=== PATIENT | female | born 1955 | race Caucasian/White ===

== ENCOUNTER 2022-11-08 09:43 | Emergency (ER) | payer OTHER, SELFPAY ==
--- NOTE | ~2022-11-08 | XR_ITS ---
EXAMINATION: XR KNEE, RIGHT CLINICAL INFORMATION: Pain status post fall COMPARISON: None TECHNIQUE: Two views of the right knee. FINDINGS: Small effusion. Advanced degenerative arthritis medial compartment. Generalized spurring. No focal bony lesion or deformity. Tibial plateaus intact. No radiopaque loose body. Monckeberg calcification suggesting diabetes. XR/XR knee RT 2V IMPRESSION: No fracture. Advanced degenerative arthritis medial compartment. Small effusion.
[2022-11-08 09:52] VITALS: BP 146/71; PULSE 73; RESP 18; TEMP 36; O2SAT 96; BMI 33.3
--- NOTE | 2022-11-08 11:08 | ED.LOWEXIN ---
HPI - Extremity Injury (Lower) General Chief Complaint: Extremity Injury, Lower Stated Complaint: R knee pain work inj Time Seen by Provider: 11/08/22 10:10 History of Present Illness HPI Narrative: patient complains of right knee pain after fall at work yesterday, she slipped on a patch of wet water and fell down and twisted her rightknee, denies any other pain or injury at this time Related Data Allergies Allergy/AdvReac Type Severity Reaction Status Date / Time acetaminophen [From Percocet] Allergy Intermediate Unknown Verified 11/08/22 09:52 oxycodone [From Percocet] Allergy Intermediate Unknown Verified 11/08/22 09:52 Review of Systems Review of Systems: positive for right knee pain after fall Negatives are no head injury no headache no loss of consciousness no neck pain no numbness weakness or tingling no chest pain no rib pain no abdominal pain no other extremity injuries or pain no lacerations Yes all other systems are reviewed and are negative PMFSH Past Medical History Source: nursing notes reviewed Social History Social History Advance Directives: No Advance Directives Information Provided: No Physical Exam Vital Signs: Vital Signs: Last Vital Signs Temp 96.8 F 11/08/22 09:52 Pulse 73 11/08/22 09:52 Resp 18 11/08/22 09:52 BP 146/71 H 11/08/22 09:52 Pulse Ox 96 11/08/22 09:52 O2 Del Method 11/08/22 09:52 BMI result Body Mass Index 33.3 general appearance is no acute distress Head is normocephalic atraumatic Neck is supple The back full range of motion Respiratory no distress The right knee exam there is tender on the medial and anterior aspects of the knee there may be some mild swelling there is no redness no warmth that extends to 180 patient can do a straight leg lift, there is no ligamentous laxity no redness no warmth no rash, skin is intact Other extremities normal Skin no rashes Neuro no motor sensory deficit Course Course Course Narrative: x-ray right kneeshowed arthritic changes, small effusion, no acute bony injury Patient will follow with [facility] and is given an Jb bandage, she could ambulate with a limp and has her cane and was discharged Discharge Plan Discharge Clinical Impression: Right knee sprain, Fall Patient Disposition: Home, Self-Care Additional Instructions: x-ray did show arthritis in the knee but no broken bones you may have sprained your knee in the fall, and because of the underlying arthritis it will be painful Apply ice, elevate knee, Tylenol if needed Follow with [facility] on Thursday if not better Referrals: [facility] [Provider Group] ( knee sprain at work after a fall) Alek Harden MD [Physician] - ( work related knee sprain after a fall with underlying osteoarthritis) Stand Alone Forms: Work/School Release Interventions: ED Discharge Assessment Last Done: 11/08/22 11:20 Discharge Date/Time: 11/08/22 11:23
--- NOTE | 2022-11-08 11:21 | PC.NURSE ---
tech put an ac bandage on pt's knee and gave discharge instructions
== END 2022-11-08 11:23 | disposition home or self-care (01) ==
PROVIDERS: Emergency Provider Emergency Medicine; PCP Internal Medicine
DX: S83.91XA Sprain of unspecified site of right knee, initial encounter (principal); W01.0XXA Fall on same level from slipping, tripping and stumbling without subsequent striking against object, initial encounter; Y93.89 Activity, other specified; Y92.512 Supermarket, store or market as the place of occurrence of the external cause; Y99.0 Civilian activity done for income or pay
CPT/HCPCS: 73560; 99283

== ENCOUNTER → 2022-11-14 08:37 | Outpatient (BNVA) | payer OTHER, SELFPAY | PROVIDERS: PCP Internal Medicine; Visit Provider Physician Assistant | DX: M25.561 Pain in right knee (principal); M25.461 Effusion, right knee | CPT/HCPCS: 99204 ==

== ENCOUNTER → 2022-11-28 09:00 | Outpatient (BNVA) | payer OTHER, SELFPAY | PROVIDERS: PCP Internal Medicine; Visit Provider Physician Assistant | DX: M25.561 Pain in right knee (principal) | CPT/HCPCS: 99213 ==

== ENCOUNTER 2023-01-01 11:51 | Emergency (ER) | payer OTHER, SELFPAY ==
[2023-01-01] VITALS (7 sets, daily range): BP systolic 184–220; BP diastolic 73–93; PULSE 64–88; RESP 16–19; TEMP 35.7–37.2; O2SAT 95–100; BMI 33.3
--- NOTE | ~2023-01-01 | CT_ITS ---
EXAMINATION: CT HEAD WITHOUT CONTRAST CLINICAL INFORMATION: 2 weeks feeling off balance COMPARISON: None TECHNIQUE: Contiguous axial imaging was performed from the skull base to vertex without intravenous administration of contrast. This CT examination was performed using dose optimization techniques as appropriate, variously including the following: *Automated exposure control *Adjustment of mA and/or kV according to patient size (this includes techniques or standardized protocols for targeted exams where dose is matched to indication/reason for exam; i.e. extremities or head) *Use of iterative reconstruction technique DLP: 615 mGy-cm FINDINGS: There is no evidence of acute intracranial hemorrhage or territorial infarction. No abnormal mass effect or midline shift is seen. Jung to white matter differentiation is well preserved. No extra-axial fluid collections are identified. No hydrocephalus. No significant volume loss. Patchy periventricular and deep white matter hypoattenuation is consistent with mild small vessel ischemic changes. No acute osseous or soft tissue abnormality. The mastoid air cells and visualized portions of the paranasal sinuses are well aerated. CT/CT head/brain wo IV con IMPRESSION: No acute intracranial pathology.
--- NOTE | 2023-01-01 12:17 | ED.GENADULT ---
HPI - General Adult General Chief complaint: Dizziness <ALBER Carrillo - Last Filed: 01/01/23 12:20> Stated complaint: vertigo <ALBER Carrillo - Last Filed: 01/01/23 12:20> Time Seen by Provider: 01/01/23 22:44 <ALBER Carrillo - Last Filed: 01/01/23 12:20> Source: patient <Pallavi Collins MD - Last Filed: 01/02/23 01:20> Mode of arrival: ambulatory <Pallavi Collins MD - Last Filed: 01/02/23 01:20> Limitations: no limitations <Pallavi Collins MD - Last Filed: 01/02/23 01:20> History of Present Illness HPI narrative: Patient comes to the emergency room complaining of intermittent dizziness for 2 weeks. Patient states that whenever she moves her head a certain way, she has dizziness. Patient describes dizziness as feeling that she is on a ship. Patient denies room spinning, also complaining of wobbly gait intermittently. Patient also complaining of left ear fullness, no ear pain, no fever chills. Patient states that she was prescribed meclizine by her PCP, patient states that the meclizine made her more dizzy and stop taking it. <Pallavi Collins MD - Last Filed: 01/02/23 01:20> Related Data Home medications: Previous Rx's Medication Instructions Recorded diazepam 2 mg tablet 2 mg PO BEDTIME PRN vertigo #7 tabs 01/02/23 diphenhydramine HCl 25 mg capsule 25 mg PO BEDTIME PRN motion 01/02/23 (Benadryl) sickness #10 caps <ALBER Carrillo - Last Filed: 01/01/23 12:20> Allergies/adverse reactions: Allergies Allergy/AdvReac Type Severity Reaction Status Date / Time acetaminophen [From Percocet] Allergy Intermediate Unknown Verified 11/08/22 09:52 oxycodone [From Percocet] Allergy Intermediate Unknown Verified 11/08/22 09:52 <ALBER Carrillo - Last Filed: 01/01/23 12:20> Review of Systems Review of Systems: Constitutional : No Weight loss, No Fever, No Chills, No Night Sweats, No Fatigue, No Malaise ENT/Mouth : No Hearing loss, No Ear Pain, No Nasal Congestion, No Sinus Pain, No Hoarseness, No sore throat, No Rhinorrhea, No Swallowing Difficulty Eyes: No Eye Pain, No Swelling, No Redness, No Foreign Body, No Discharge, No Vision Changes Cardiovascular : No Chest Pain, No SOB, No Dyspnea on Exertion, No Orthopnea, No Edema, No Palpitations Respiratory : No Cough, No Sputum, No Wheezing, No Smoke Exposure, No Dyspnea Gastrointestinal : No Nausea, No Vomiting, No Diarrhea, No Constipation, No abdominal Pain, No Hematochezia, No Melena Genitourinary : no irregular bleeding, No Dysuria, No Urinary Frequency, No Hematuria, No Urinary Incontinence, No Urgency, No Flank Pain, No Urinary Flow Changes, No Hesitancy Musculoskeletal : No joint pain, No Myalgias, No Joint Swelling Skin : No Skin Lesions, No rash Neuro : No Weakness, No Numbness, No Paresthesias, No Loss of Consciousness, patient complaining of feeling off balance and wobbly gait with certain head movements Psych : No Anxiety/Panic, No Depression, No SI/HI/AH/VH, No Social Issues, Heme/Lymph: No Bruising, No Bleeding,No Lymphadenopathy Endocrine : No Polyuria, No Polydipsia, No Temperature Intolerance <Pallavi Collins MD - Last Filed: 01/02/23 01:20> [facility] Past Medical History Medical History: Medical History (Updated 01/02/23 @ 01:17 by Pallavi Collins MD) Anxiety <ALBER Carrillo - Last Filed: 01/01/23 12:20> Social History Social History: Social History Advance Directives: No <ALBER Carrillo - Last Filed: 01/01/23 12:20> Physical Exam ED Vital Signs: Vital Signs - 24 hr 01/01/23 12:18 01/01/23 16:50 01/01/23 19:00 Temperature 96.3 F L 98.9 F Pulse Rate 64 88 83 Respiratory Rate 18 18 Blood Pressure 184/77 H 186/73 H 192/75 H Pulse Oximetry 97 95 Oxygen Delivery Method Room Air Room Air 01/01/23 19:05 01/01/23 19:10 01/01/23 19:15 Temperature Pulse Rate 70 78 78 Respiratory Rate 16 Blood Pressure 198/91 H 190/93 H 190/93 H Pulse Oximetry 100 Oxygen Delivery Method Room Air 01/01/23 22:40 01/02/23 00:21 Temperature 98 F 97.0 F Pulse Rate 72 86 Respiratory Rate 19 20 Blood Pressure 220/78 H 177/91 H Pulse Oximetry 97 96 Oxygen Delivery Method Room Air Room Air BMI result Body Mass Index 33.3 <ALBER Carrillo - Last Filed: 01/01/23 12:20> Vital Signs - 24 hr 01/01/23 12:18 01/01/23 16:50 01/01/23 19:00 Temperature 96.3 F L 98.9 F Pulse Rate 64 88 83 Respiratory Rate 18 18 Blood Pressure 184/77 H 186/73 H 192/75 H Pulse Oximetry 97 95 Oxygen Delivery Method Room Air Room Air 01/01/23 19:05 01/01/23 19:10 01/01/23 19:15 Temperature Pulse Rate 70 78 78 Respiratory Rate 16 Blood Pressure 198/91 H 190/93 H 190/93 H Pulse Oximetry 100 Oxygen Delivery Method Room Air 01/01/23 22:40 01/02/23 00:21 Temperature 98 F 97.0 F Pulse Rate 72 86 Respiratory Rate 19 20 Blood Pressure 220/78 H 177/91 H Pulse Oximetry 97 96 Oxygen Delivery Method Room Air Room Air BMI result Body Mass Index 33.3 <Pallavi Collins MD - Last Filed: 01/02/23 01:20> Const Other: Appearance: Alert. Oriented X3. No acute distress. Eyes: Pupils equal, round and reactive to light. ENT: Pharynx normal. Neck: Normal inspection. Neck supple. No lymph nodes noted. No crepitus CVS: Normal heart rate and rhythm. Pulses normal. Normal S1 and S2 Respiratory: No respiratory distress. Breath sounds normal. No Wheezing. No rales Abdomen: Soft and nontender. No rigidity. No distention. Skin: Skin warm and dry. Normal skin color. Normal skin turgor. Extremities: No lower extremity edema. No Lacerations. No Rash Neuro: Oriented X 3. No motor deficit. No sensory deficit. Moving all extremities. No slurred speech. CN 2 through 12 grossly intact Psych: calm, cooperative, normal affect <Pallavi Collins MD - Last Filed: 01/02/23 01:20> Course Course Course Narrative: This is an RME: Additional HPI, ROS, PE not included below will be deferred to primary provider. This is a 67 year old female presenting w/ L ear discomfort X few weeks worsening over the past two days. Feels off balance. Was told to come in for eval by her PCP. Denies fevers, chills, neck pain, cp, sob, nausea, vomiting. Hx of vertigo. Plan- labs, ua, orthostatic vitals. Patient tells me she cant take meclizine <ALBER Carrillo - Last Filed: 01/01/23 12:20> This is an RME: Additional HPI, ROS, PE not included below will be deferred to primary provider. This is a 67 year old female presenting w/ L ear discomfort X few weeks worsening over the past two days. Feels off balance. Was told to come in for eval by her PCP. Denies fevers, chills, neck pain, cp, sob, nausea, vomiting. Hx of vertigo. Plan- labs, ua, orthostatic vitals. Patient tells me she cant take meclizine -patient reports wobbly gait, we will also obtain a head CT <Pallavi Collins MD - Last Filed: 01/02/23 01:20> Medications Administered Discontinued Medications Generic Name Dose Route Start Last Admin Trade Name Freq PRN Reason Stop Dose Admin Diazepam 2 mg 01/01/23 12:18 01/01/23 20:54 Diazepam 2 Mg Tablet PO 01/01/23 12:19 2 mg ONCE ONE Administration Sodium Chloride 1,000 mls @ 999 mls/hr 01/01/23 12:30 01/01/23 22:40 Ns IV 01/01/23 13:30 Not Given .Q1H1M ABRIL <ALBER Carrillo - Last Filed: 01/01/23 12:20> Medications Administered Discontinued Medications Generic Name Dose Route Start Last Admin Trade Name Freq PRN Reason Stop Dose Admin Diazepam 2 mg 01/01/23 12:18 01/01/23 20:54 Diazepam 2 Mg Tablet PO 01/01/23 12:19 2 mg ONCE ONE Administration Sodium Chloride 1,000 mls @ 999 mls/hr 01/01/23 12:30 01/01/23 22:40 Ns IV 01/01/23 13:30 Not Given .Q1H1M ABRIL <Pallavi Collins MD - Last Filed: 01/02/23 01:20> Medical Decision Making Medical Decision Making [facility] Narrative: -CT scan of the head does not show any acute abnormalities, ventricles normal -patient has been walking in the ED with steady gait, using her cane as she usually does -patient cannot take meclizine which makes her dizzy. I discussed with the patient that p.r.n. dizziness/vertigo she can take diazepam and Benadryl once she is in bed to avoid falling -discussed with the patient that the actual treatment can be done through physical therapy, likely to need Rossy maneuver -patient was given Benadryl and diazepam in the ED. Patient has a friend who will be driving. <Pallavi Collins MD - Last Filed: 01/02/23 01:20> Differential Diagnosis Differential Diagnoses: The differential diagnosis associated with the presentation includes (Normal pressure hydrocephalus, vertigo) <Pallavi Collins MD - Last Filed: 01/02/23 01:20> Lab Data [facility] Lab Attestation statement: I reviewed the patient's lab results. <Pallavi Collins MD - Last Filed: 01/02/23 01:20> Result Diagrams: 01/01/23 13:34 01/01/23 13:34 <ALBER Carrillo - Last Filed: 01/01/23 12:20> Labs: Lab Results 01/01/23 01/01/23 01/01/23 Range/Units 13:34 13:34 20:56 WBC 8.0 (4.8-10.8) X10*3/uL RBC 4.47 (4.20-5.50) X10*6/uL Hgb 14.3 (12.0-16.0) g/dl Hct 41.8 (37.0-47.0) % MCV 93.5 (80.0-98.0) fL MCH 32.0 (27.0-33.0) pg MCHC 34.2 (31.0-35.0) g/dl RDW 12.9 (11.0-16.0) % Plt Count 254 (160-400) X10*3/uL MPV 10.3 (9.4-12.3) fL Immature Gran % (Auto) 0.2 (0.0-0.4) % Neut % (Auto) 71.3 (45-73) % Lymph % (Auto) 20.8 (20-40) % [place] % (Auto) 6.8 (2-11) % Eos % (Auto) 0.5 (0-4) % Baso % (Auto) 0.4 (0-2) % Lymph # (Auto) 1.7 (1.2-4.9) X10*3/uL [place] # (Auto) 0.6 (0.1-1.2) X10*3/uL Eos # (Auto) 0.0 (0.0-0.4) X10*3/uL Baso # (Auto) 0.0 (0.0-0.2) X10*3/uL Abs Immat Gran (auto) 0.02 (0.00-0.03) X10*3/uL Absolute Neuts (auto) 5.7 (2.0-8.3) x10*3/uL Absolute Nucleated RBC 0.000 (0.0-0.012) X10*3/uL Nucleated RBC % (auto) 0.0 (0.0-0.2) /100WBC Sodium 143 (135-145) mmol/L Potassium 4.0 (3.3-5.1) mmol/L Chloride 107 (96-108) mmol/L Carbon Dioxide 25 (22-29) mmol/L Anion Gap 15 (12-20) BUN 8 L (9-16) mg/dL Creatinine 0.74 (0.5-1.4) mg/dL Estim Creat Clear Calc 79.8 Estimated GFR > 60 Random Glucose 133 H (60-115) mg/dL Calcium 9.7 (8.4-10.2) mg/dL Total Bilirubin 1.0 (0.0-1.0) mg/dL AST 17 (5-31) U/L ALT 24 (0-31) U/L Alkaline Phosphatase 97 (39-117) U/L Total Protein 6.9 (6.5-8.0) g/dL Albumin 4.5 (3.5-5.0) g/dL Urine Color Yellow Urine Appearance Clear Urine pH 6.5 (5.0-9.0) Ur Specific [place] 1.010 (1.005-1.025) Urine Protein Negative (Neg-Trace) mg/dL Urine Glucose (UA) Negative (Negative) mg/dL Urine Ketones Negative (Negative) mg/dL Urine Blood Negative (Negative) Urine Nitrite Negative (Negative) Ur Leukocyte Esterase Small (1+) H (Negative) Urine RBC 0-2 (0-2) /HPF Urine WBC 0-5 (0-5) /HPF Ur Squamous Epith Cells 0-2 (0-2) /HPF Urine Bacteria 1+ (None Seen) Hyaline Casts 0-2 (0-2) /LPF <ALBER Carrillo - Last Filed: 01/01/23 12:20> Lab Results 01/01/23 01/01/23 01/01/23 Range/Units 13:34 13:34 20:56 WBC 8.0 (4.8-10.8) X10*3/uL RBC 4.47 (4.20-5.50) X10*6/uL Hgb 14.3 (12.0-16.0) g/dl Hct 41.8 (37.0-47.0) % MCV 93.5 (80.0-98.0) fL MCH 32.0 (27.0-33.0) pg MCHC 34.2 (31.0-35.0) g/dl RDW 12.9 (11.0-16.0) % Plt Count 254 (160-400) X10*3/uL MPV 10.3 (9.4-12.3) fL Immature Gran % (Auto) 0.2 (0.0-0.4) % Neut % (Auto) 71.3 (45-73) % Lymph % (Auto) 20.8 (20-40) % [place] % (Auto) 6.8 (2-11) % Eos % (Auto) 0.5 (0-4) % Baso % (Auto) 0.4 (0-2) % Lymph # (Auto) 1.7 (1.2-4.9) X10*3/uL [place] # (Auto) 0.6 (0.1-1.2) X10*3/uL Eos # (Auto) 0.0 (0.0-0.4) X10*3/uL Baso # (Auto) 0.0 (0.0-0.2) X10*3/uL Abs Immat Gran (auto) 0.02 (0.00-0.03) X10*3/uL Absolute Neuts (auto) 5.7 (2.0-8.3) x10*3/uL Absolute Nucleated RBC 0.000 (0.0-0.012) X10*3/uL Nucleated RBC % (auto) 0.0 (0.0-0.2) /100WBC Sodium 143 (135-145) mmol/L Potassium 4.0 (3.3-5.1) mmol/L Chloride 107 (96-108) mmol/L Carbon Dioxide 25 (22-29) mmol/L Anion Gap 15 (12-20) BUN 8 L (9-16) mg/dL Creatinine 0.74 (0.5-1.4) mg/dL Estim Creat Clear Calc 79.8 Estimated GFR > 60 Random Glucose 133 H (60-115) mg/dL Calcium 9.7 (8.4-10.2) mg/dL Total Bilirubin 1.0 (0.0-1.0) mg/dL AST 17 (5-31) U/L ALT 24 (0-31) U/L Alkaline Phosphatase 97 (39-117) U/L Total Protein 6.9 (6.5-8.0) g/dL Albumin 4.5 (3.5-5.0) g/dL Urine Color Yellow Urine Appearance Clear Urine pH 6.5 (5.0-9.0) Ur Specific [place] 1.010 (1.005-1.025) Urine Protein Negative (Neg-Trace) mg/dL Urine Glucose (UA) Negative (Negative) mg/dL Urine Ketones Negative (Negative) mg/dL Urine Blood Negative (Negative) Urine Nitrite Negative (Negative) Ur Leukocyte Esterase Small (1+) H (Negative) Urine RBC 0-2 (0-2) /HPF Urine WBC 0-5 (0-5) /HPF Ur Squamous Epith Cells 0-2 (0-2) /HPF Urine Bacteria 1+ (None Seen) Hyaline Casts 0-2 (0-2) /LPF <Pallavi Collins MD - Last Filed: 01/02/23 01:20> Independent Interpretation I performed an independent interpretation of an: CT Scan (My interpretation of head CT: No hydrocephalus) <Pallavi Collins MD - Last Filed: 01/02/23 01:20> Radiology Impression Discussion of test interpretation with radiology: I have reviewed the radiologist's reading. <Pallavi Collins MD - Last Filed: 01/02/23 01:20> Radiologist Impression: FINDINGS: There is no evidence of acute intracranial hemorrhage or territorial infarction. No abnormal mass effect or midline shift is seen. Jung to white matter differentiation is well preserved. No extra-axial fluid collections are identified. No hydrocephalus. No significant volume loss. Patchy periventricular and deep white matter hypoattenuation is consistent with mild small vessel ischemic changes. No acute osseous or soft tissue abnormality. The mastoid air cells and visualized portions of the paranasal sinuses are well aerated. ? CT/CT head/brain wo IV con IMPRESSION: No acute intracranial pathology. <Pallavi Collins MD - Last Filed: 01/02/23 01:20> Discharge Plan Discharge Clinical Impression: Benign paroxysmal positional vertigo <ALBER Carrillo - Last Filed: 01/01/23 12:20> Patient Disposition: Home, Self-Care <ALBER Carrillo - Last Filed: 01/01/23 12:20> Instructions: Benign Paroxysmal Positional Vertigo (ED) <ALBER Carrillo - Last Filed: 01/01/23 12:20> Additional Instructions: Please follow-up with your primary care physician tomorrow. If you have any worsening or new symptoms, please return to the emergency room or call 911 <ALBER Carrillo - Last Filed: 01/01/23 12:20> Prescriptions: New diphenhydramine HCl [Benadryl] 25 mg capsule 25 mg PO BEDTIME PRN (Reason: motion sickness) Qty: 10 0RF diazepam 2 mg tablet 2 mg PO BEDTIME PRN (Reason: vertigo) Qty: 7 0RF <ALBER Carrillo - Last Filed: 01/01/23 12:20>
[2023-01-01 13:38] LABS: MANUAL DIFF FLAG NO
[2023-01-01 13:39] LABS: Basophils Percent Auto 0.4 % (0-2); Eosinophils Percent Auto 0.5 % (0-4); Hematocrit 41.8 % (37.0-47.0); Hemoglobin 14.3 g/dl (12.0-16.0); Imm Gran Abs Auto 0.02 X10*3/uL (0.00-0.03); Imm Gran Pct Auto 0.2 % (0.0-0.4); Lymphocytes Absolute Auto 1.7 X10*3/uL (1.2-4.9); Lymphocytes Percent Auto 20.8 % (20-40); Mean Corpuscular HGB Conc 34.2 g/dl (31.0-35.0); Mean Corpuscular Volume 93.5 fL (80.0-98.0); Mean Platelet Volume 10.3 fL (9.4-12.3); Monocytes Absolute Auto 0.6 X10*3/uL (0.1-1.2); Monocytes Percent Auto 6.8 % (2-11); Neutrophils Absolute Auto 5.7 x10*3/uL (2.0-8.3); Neutrophils Percent Auto 71.3 % (45-73); Platelet Count 254 X10*3/uL (160-400); Red Blood Count 4.47 X10*6/uL (4.20-5.50); Red Cell Distribution Width 12.9 % (11.0-16.0)
[2023-01-01 13:56] LABS: Alanine Aminotransferase 24 U/L (0-31); Albumin Level 4.5 g/dL (3.5-5.0); Alkaline Phosphatase 97 U/L (39-117); Anion Gap 15 (12-20); Aspartate Amino Transferase 17 U/L (5-31); Blood Urea Nitrogen 8 mg/dL (9-16); Calcium 9.7 mg/dL (8.4-10.2); Carbon Dioxide 25 mmol/L (22-29); Chloride 107 mmol/L (96-108); Creatinine Clr Calc Pharmacy 79.8; Estimated Glomerular Filt Rate > 60; Glucose Random 133 mg/dL (60-115); Sodium 143 mmol/L (135-145); Total Protein 6.9 g/dL (6.5-8.0)
--- NOTE | 2023-01-01 19:18 | PC.NURSE ---
pt ambulating frp, wr and to restroom independently with no issue.
[2023-01-01] MEDS: diazePAM 2 MG TABLET PO (20:54)
[2023-01-01 21:06] LABS: Appearance Urine Clear; Color Urine Yellow; Glucose Urine UA Negative (Negative); Leukocyte Esterase Urine Small (1+) (Negative); Nitrite Urine Negative (Negative); PH 6.5 (5.0-9.0); UMIC TRIGGER UACC YES; Urine Blood Negative (Negative); Urine Ketones Negative (Negative); Urine Protein Negative (Neg-Trace)
[2023-01-01 21:17] LABS: Bacteria Urine 1+ (None Seen); Hyaline Casts Urine 0-2 /LPF (0-2); RBC Urine 0-2 /HPF (0-2); Squamous Epithelial Cell Urine 0-2 /HPF (0-2); UACC Culture Trigger YES; WBC Urine 0-5 /HPF (0-5)
[2023-01-02 00:21] VITALS: BP 177/91; PULSE 86; RESP 20; TEMP 36.1; O2SAT 96
[2023-01-02] MEDS: diphenhydrAMINE HCL 25 MG CAPSULE PO (01:26)
[2023-01-02] MEDS: diazePAM 2 MG TABLET PO (01:26)
== END 2023-01-02 01:33 | disposition home or self-care (01) ==
PROVIDERS: Physician Assistant; Emergency Provider Emergency Medicine
DX: H81.12 Benign paroxysmal vertigo, left ear (principal)
CPT/HCPCS: 36415; 70450; 80053; 81001; 85025; 87086; 99283; 99284